=== PATIENT | male | born 1970 | race Caucasian/White ===

== ENCOUNTER 2020-04-09 16:15 | Outpatient (CLI) | payer OTHER, SELFPAY ==
[2020-04-09 17:10] LABS: SARS-CoV-2 Ag Negative (Negative)
== END 2020-04-09 16:16 | disposition home or self-care (01) ==
LOC: CHSLAB 16:22
PROVIDERS: PCP Internal Medicine; Visit Provider Internal Medicine
DX: Z20.828 Contact with and (suspected) exposure to other viral communicable diseases (principal)
CPT/HCPCS: 87426

== ENCOUNTER 2022-02-09 00:45 | Day surgery (SDC) | payer BC, SELFPAY ==
[2022-01-26 13:22] VITALS: BMI 26.6
[2022-02-09 08:15] VITALS: BP 118/76; PULSE 71; RESP 18; TEMP 36.3; O2SAT 100; BMI 26.8
[2022-02-09] MEDS: LACTATED RINGERS 1,000 ML 150 ML IV CONT (08:33)
--- NOTE | 2022-02-09 08:44 | WPDANESEPPF ---
Anes - Initial Pre Proc Eval Procedure: Operation Date: 02/09/22 09:30 Proposed Procedures p Screening Colonoscopy - pEi Cosme MD Date/Time: 02/09/22 08:44 Surgeon: Epi Cosme MD Pre Op Diagnosis: neoplasm sceening Patient Data Age: 51 Gender: M Height: 1.75 m Weight: 82.4 kg Last Vital Signs Temp 97.3 F L 02/09/22 08:15 Pulse 71 02/09/22 08:15 Resp 18 02/09/22 08:15 BP 118/76 02/09/22 08:15 Pulse Ox 100 02/09/22 08:15 O2 Del Method Room Air 02/09/22 08:15 Allergies Allergy/AdvReac Type Severity Reaction Status Date / Time No Known Allergies Allergy Verified 02/09/22 08:21 Home Medications Medication Instructions Recorded Confirmed Type terbinafine HCl 250 mg tablet 250 mg PO DAILY 6 weeks #42 tabs 01/05/22 02/09/22 Rx Patient hx anesthesia problems: none Family hx anesthesia problems: none Results Review: All pre-operative results and documents have been reviewed as part of the pre-operative evaluation. [facility] Past Medical History Medical History (Updated 01/05/22 @ 10:35 by Alonzo Bustamante MD) Annual physical exam Colonoscopy planned Establishing care with new doctor, encounter for History of kidney stones Renal calculi Social History Social History Smoking status: Never smoker Alcohol intake: current Drinks per week: 2 Substance use: never Substance use type: does not use Living arrangements: with family Spiritual care concerns: No Anes - Eval Final PreProcedure Day of Procedure 02/09/22 08:44 Patient weight: normal Heart: regular rate and rhythm Lungs: clear to auscultation Airway: Mallampati scale class II Neurological: alert and oriented Last oral intake: >/= 8 hours ASA classification: II Emergent: no Anesthetic plan: proceed Anesthesia type and monitoring: general GIVS and standard monitoring Results Review: All pre-operative results and documents have been reviewed as part of the pre-operative evaluation. Informed Consent: The patient's anesthetic plan and its attendant risks and benefits were discussed with the patient/family/POA. Questions were solicited and answers provided to the satisfaction of the patient/family/POA.
--- NOTE | 2022-02-09 09:08 | P.HP_ITS ---
History of Present Illness History of Present Illness Consent: Risks, benefits, and alternatives have been discussed and questions answered. Patient agrees to proceed with procedure. Chief complaint: neoplasm sceening Narrative: Rob Dale is a 51 year old male here for first screening colonoscopy Review of Systems Constitutional: Constitutional: Denies headache(s) and Denies weakness Eyes: Eyes: Denies blurry vision ENT: Reports Normal hearing present, Denies headache(s) and Denies neck pain Cardiovascular: Cardiovascular: Denies chest pain and Denies dyspnea Respiratory: Respiratory: Denies dyspnea Gastrointestinal: Gastrointestinal: Reports no additional gastrointestinal complaints Genitourinary: Genitourinary: Denies dysuria Musculoskeletal: Musculoskeletal: Denies neck pain Integumentary/Breasts: Skin/Breast: Denies dry skin Neurologic: Reports Normal hearing present, Denies headache(s) and Denies we akness Psychiatric: Psychiatric: Denies anxiety Endocrine: Endocrine: Denies change in body appearance Hematologic/Lymphatic: Hematologic/Lymphatic: Denies easy bleeding Allergic/Immunologic: Allergic/Immunologic: Denies urticaria PMFSH Past Medical History Medical History (Updated 02/09/22 @ 09:08 by Epi Cosme MD) Annual physical exam Colon cancer screening Colonoscopy planned Establishing care with new doctor, encounter for History of kidney stones Renal calculi Social History Social History Smoking status: Never smoker Alcohol intake: current Drinks per week: 2 Substance use: never Substance use type: does not use Living arrangements: with family Spiritual care concerns: No Meds Home Medications and Allergies Home Medications Medication Instructions Recorded Confirmed Type terbinafine HCl 250 mg tablet 250 mg PO DAILY 6 weeks #42 tabs 01/05/22 02/09/22 Rx Allergies Allergy/AdvReac Type Severity Reaction Status Date / Time No Known Allergies Allergy Verified 02/09/22 08:21 Vital Signs Vital Signs - 24 hr 02/09/22 08:15 Temperature 97.3 F L Pulse Rate 71 Respiratory Rate 18 Blood Pressure 118/76 Pulse Oximetry 100 Oxygen Delivery Room Air Exam Const: General: comfortable and no acute distress HENMT: General nose exam: Normal nares present Eyes: General: appearance normal, both eyes and all related structures Neck: Neck: no JVD Resp: Auscultation: clear to auscultation bilaterally Cardio: Rate: regular rate Rhythm: regular rhythm GI: Inspection: non-distended GI Palp: Yes Soft to palpation Skin: General skin exam: normal color Neuro: General: gait normal Speech: normal speech Extrem: General: normal to inspection Psych: Mental Status: mental status grossly normal Assessment and Plan Assessment and plan (1) Colon cancer screening: Code(s): Z12.11 - Encounter for screening for malignant neoplasm of colon Status: Acute Assessment and Plan: colonoscopy
[2022-02-09 09:27] VITALS: BP 89/49; PULSE 72; RESP 19; O2SAT 97
[2022-02-09 09:37] VITALS: BP 101/70; PULSE 73; RESP 23; O2SAT 96
[2022-02-09 09:47] VITALS: BP 105/70; PULSE 73; RESP 22; O2SAT 98
== END 2022-02-09 09:49 | disposition home or self-care (01) ==
PROVIDERS: PCP Family Medicine; Visit Provider Internal Medicine Gastroenterology
PROC: 0DJD8ZZ Inspection of Lower Intestinal Tract, Via Natural or Artificial Opening Endoscopic (ICD-10-PCS; CPT 45378; principal; 2022-02-09 09:30)
DX: Z12.11 Encounter for screening for malignant neoplasm of colon (principal); K63.5 Polyp of colon; K64.8 Other hemorrhoids
CPT/HCPCS: 45385; 88305; J2001; J2704; J7120